=== PATIENT | male | born 1930 | race Caucasian/White ===

== ENCOUNTER 2017-01-02 15:16 | Inpatient (IN) | payer MEDICARE, OTHER ==
--- NOTE | ~2017-01-02 | DS ---
Discharge Summary [facility] [address] [place]. [address] NAME: JESSICA NORRIS : 30 STATUS : DIS IN PAT#: [id number] AGE: 86 ADM/REG DATE : 01/02/17 MR#: [id number] REPORT SERV DATE: 01/13/17 DICTATED BY: BRENNON PETTY DATE: 01/12/17 REPORT STATUS : Draft TRANSCRIBED BY: LUCERO DATE: 01/12/17 ADMISSION DATE: 01/02/2017 DISCHARGE DATE: 01/12/2017 This patient is now ready to be transferred to rehab. DISCHARGE DISPOSITION: To care home facility. DISCHARGE ACTIVITY: Per facility. DISCHARGE DIET: As tolerated. DISCHARGE MEDICATIONS: Proscar 5 mg at bedtime, Ativan 0.5 mg twice daily, Paxil 10 mg every morning, vancomycin 125 p.o. four times daily per Dr. Beverly, simvastatin 40 mg once daily, Flomax 0.8 mg once at bedtime, triamcinolone three times daily after bathing, Bactroban, ramipril 10 mg once daily, aspirin 81 mg once daily, and Benadryl 50 mg with breakfast and lunch and p.r.n. for itching. DISCHARGE FOLLOWUP: With the physicians at care home [facility]. More than 35 minutes spent planning this patient's discharge, reconciling medications, writing prescriptions, discussing hospital care, and followup arranging discharge as well. ANN/LUCERO Brennon Petty M.D. / [id number] CC: Brennon Petty M.D.
--- NOTE | ~2017-01-02 | DS ---
Discharge Summary [facility] [address] [place]. [address] NAME: JESSICA NORRIS : 30 STATUS : DIS IN PAT#: [id number] AGE: 86 ADM/REG DATE : 01/02/17 MR#: [id number] REPORT SERV DATE: 01/13/17 DICTATED BY: BRENNON PETTY DATE: 01/12/17 REPORT STATUS : Draft TRANSCRIBED BY: MODL DATE: 01/12/17 ADMISSION DATE: 01/02/2017 DISCHARGE DATE: 01/12/2017 DISCHARGE DIAGNOSES: 1. Pneumococcal sepsis with pneumococcal bacteremia. 2. Complicated right parapneumonic effusion, status post chest tube drainage and tPA plus DNase. 3. Klebsiella urinary tract infection. 4. Acute kidney injury, resolved. 5. Cerebrovascular disease. 6. Hypertension. 7. Chronic obstructive pulmonary disease. 8. Anemia. 9. Electrolyte abnormalities, now corrected. 10.History of cerebrovascular accident with the right-sided weakness. 11.Benign prostatic hypertrophy. 12.Hyperlipidemia. 13.Depression. 14.Generalized debility in long-term care facility. CONSULTANTS DURING THIS HOSPITALIZATION: Critical Care Medicine and Dr. Elder Beverly of Infectious Disease. BRIEF HISTORY OF PRESENT ILLNESS: The patient is an 86-year-old male transferred from an outlying ER with acute kidney injury, right pneumonia, and hypotension. For detailed history and physical exam, please see note dictated by Dr. Richey on 01/02/2017. HOSPITAL COURSE: After being admitted to the hospital, this patient was in the intensive care unit up to 01/08/2017. I took over this patient's care on 01/08/2017 when he was transitioned out of the intensive care unit. He was still on oxygen. We kept him on aggressive nebulizing treatments, and we were successfully able to wean the oxygen in the last four days. This patient's pneumococcal sepsis had already resolved. We have treated him with 10 days of appropriate broad-spectrum antibiotic therapy. However, this patient developed diarrhea and was positive for C. difficile, so he was immediately started on vancomycin. Infectious Disease consultation was obtained because of complicated issues of managing antibiotics. Dr. Beverly thought that vancomycin would cover the pneumococcal sepsis, so we continued that and Klebsiella UTI was thought to be a contamination. He continues to improve. His bowel movements have reduced. This patient continued to improve and Physical Therapy saw him in followup and we are recommending. ANN/LUCERO Brennon Discharge Summary [facility] [address] [place] [place] [address] NAME: JESSICA NORRIS : 30 STATUS : DIS IN PAT#: [id number] AGE: 86 ADM/REG DATE : 01/02/17 MR#: [id number] REPORT SERV DATE: 01/13/17 DICTATED BY: BRENNON PETTY DATE: 01/12/17 REPORT STATUS : Draft TRANSCRIBED BY: LUCERO DATE: 01/12/17 Paramjit Petty / [id number] CC: Brennon Petty M.D.
--- NOTE | ~2017-01-02 | OP ---
Record Of Operation [facility] [address] [place]. [address] NAME: JESSICA NORRIS : 30 STATUS : ADM IN PAT#: [id number] AGE: 86 ADM/REG DATE : 01/02/17 MR#: [id number] REPORT SERV DATE: 01/04/17 DICTATED BY: ANG RICHEY DATE: 01/04/17 REPORT STATUS : Draft TRANSCRIBED BY: MODL DATE: 01/04/17 DATE OF PROCEDURE: 01/04/2017 PROCEDURE: Right thoracentesis. INDICATION AND PREOPERATIVE DIAGNOSIS: Concern for a parapneumonic right pleural effusion, worsening hypoxic respiratory failure. POSTOPERATIVE DIAGNOSIS: Concern for a parapneumonic right pleural effusion, worsening hypoxic respiratory failure. PROCEDURE NOTE: The patient was in the supine position, leaning upright. Using ultrasound guidance, we were able to find a large loculated proteinaceous effusion on the right side. We conducted a thoracentesis. We marked the site, sterilized this area, and draped in standard fashion. Using a standard thoracentesis kit, we were able to insert the thoracentesis catheter after giving lidocaine into the site and have returned of yellow proteinaceous exudative effusion. We were able to remove around 800 mL of fluid. We were having difficulty breaking down protein upon suctioning out the fluid and that I had to manipulate the tube. Postprocedure x-ray shows mild improvement of the right thoracic space with worsening pneumonia on the left. PLAN: Follow up cultures and cytology of the right pleural effusion, keep the patient in the intensive care unit, give 1 mg of Bumex for diuresis, and spoke to power of assistant county attorney about the current status. With patient's current status, effusion is not completely evacuated with this thoracentesis and recommend a right chest tube to instill tPA and DNA into the right pleural cavity as he is most likely too frail to undergo a VATS decortication. Healthcare [id number], Mrs. Novak consented to having a chest tube inserted and we will therefore go forward with right chest tube insertion. HFQ/LUCERO Ang Richey MD / [id number] CC: Laurent Hurtado MD
--- NOTE | ~2017-01-02 | HP ---
History And Physical [facility] [address] [place]. [address] NAME: JESSICA MURO : 30 STATUS : ADM IN [facility]#: [id number] AGE: 86 ADM/REG DATE : 01/02/17 MR#: [id number] REPORT SERV DATE: 01/02/17 DICTATED BY: ANG RICHEY DATE: 01/02/17 REPORT STATUS : Draft TRANSCRIBED BY: MODTaty DATE: 01/02/17 DATE OF ADMISSION: 01/02/2017 CHIEF COMPLAINT: Aches all over. HISTORY OF PRESENT ILLNESS: Mr. Muro is an 86-year-old gentleman, who was transferred from an outside ER and was found to have septic shock, a right pneumonia with pleural effusion, and acute kidney injury. The patient is deaf and is difficult to get a history from. He does note of aches and pains and mention that he has a stroke in the past in his legs. Otherwise, I was not able to obtain further history. The patient denies having a cough or chest pain. It seems like most of his pain was pain all over. PAST MEDICAL HISTORY: Indwelling Nettles catheter; benign prostatic hypertrophy; hypertension; according to the patient, a stroke in his legs. HOME MEDICATIONS: Per record, Paxil, Altace, Flomax, Zocor, Proscar, Ativan, Benadryl. ALLERGIES: NO KNOWN DRUG ALLERGIES. FAMILY HISTORY: Could not obtain. SOCIAL HISTORY: The patient notes that he has two kids. Per nursing record, the patient lives in a skilled nursing and someone takes care of him, who is his healthcare power-of- tax associate attorney and not his kids, however, I do not see any documentation. The patient has a history of tobacco. REVIEW OF SYSTEMS: Unable to obtain due to tachypnea and hard of hearing. PHYSICAL EXAMINATION: VITAL SIGNS: Currently afebrile, heart rate 111, blood pressure 87/53, oxygen saturation 98%, respiratory rate 18. This is all done on room air. GENERAL: The patient is alert, tachypneic, hard of hearing. HEENT: No JVD noted. No cervical lymphadenopathy. LUNGS: Breath sounds decreased bilaterally, but no crackles or wheezing. CARDIAC: Tachycardic and regular, no murmurs. ABDOMEN: Abdomen feels nondistended, however, I can actually palpate stool throughout. The patient denies having any pain. He had no guarding or rebound. EXTREMITIES: Extremity is lukewarm, peripheral pulses noted but are not brisk. No cyanosis noted. IMAGING: Per the outside imaging, the patient has a right lower lobe consolidation with associated pleural effusion. ASSESSMENT AND PLAN: Mr. Muro is an 86-year-old gentleman with a past medical history noted above, who presents with underlying septic shock, acute kidney injury, probable chronic History And Physical [address] [address] NAME: JESSICA MURO : 30 STATUS : ADM IN [facility]#: [id number] AGE: 86 ADM/REG DATE : 01/02/17 MR#: [id number] REPORT SERV DATE: 01/02/17 DICTATED BY: ANG RICHEY DATE: 01/02/17 REPORT STATUS : Draft TRANSCRIBED BY: LUCERO DATE: 01/02/17 urinary tract infection, right-sided pneumonia with pleural effusion, chronic deafness, and constipation. 1. Septic shock: Follow up cultures from the outside hospital, continue vancomycin, but switched the Levaquin to Rocephin. IV fluids. PICC line. Check cortisol and TSH. 2. Acute kidney injury: Repeat BMP now, start IV fluids. 3. Urinary tract infection: Most likely chronic. We will follow up culture from the outside hospital. 4. Right-sided pneumonia with pleural effusion: We will obtain chest x-ray. If this is a significantly large effusion and the patient fails to improve with antibiotic therapy, may consider a thoracentesis. Conducting a thoracentesis right now with his agitation and difficulty with hearing may be somewhat discomforting for the patient. 5. Concern for constipation: We will hydrate adequately. We will start a bowel regimen. 6. The patient is to be started on a diet. 7. Code status: Currently unclear. Nursing staff is getting in touch with the healthcare [id number]. Critical care time: 45 minutes. NAOMIE/LUCERO Ang Richey MD / [id number] CC: Laurent Hurtado MD
--- NOTE | ~2017-01-02 | IDS ---
Interim Discharge Summary [facility] [address] [place]. [address] NAME: JESSICA NORRIS : 30 STATUS : ADM IN [facility]#: [id number] AGE: 86 ADM/REG DATE : 01/02/17 MR#: [id number] REPORT SERV DATE: 01/08/17 DICTATED BY: BELA CAMARENA IV DATE: 01/08/17 REPORT STATUS : Draft TRANSCRIBED BY: LUCERO DATE: 01/08/17 ADMISSION DATE: 01/02/2017 DISCHARGE DATE: 01/08/2017 ADMITTING DIAGNOSES: 1. Pneumococcal sepsis with bacteremia and pneumonia. 2. Complicated right parapneumonic effusion, status post chest tube drainage and tPA, DNase. 3. Klebsiella urinary tract infection. 4. Acute kidney injury, resolved with fluid resuscitation. 5. Cerebrovascular disease. 6. Hypertension. 7. Clinical chronic obstructive pulmonary disease. 8. Anemia. 9. Electrolyte abnormalities being corrected. PROCEDURES: The patient underwent right thoracentesis, then right chest tube placement for complicated parapneumonic effusion. He received three doses of tPA and DNase. CONSULTANTS: None. CURRENT MEDICATIONS: Aspirin 81 mg daily, Ativan 0.5 mg twice a day, Benadryl 25 mg at bedtime, Brovana unit dose twice a day, Pulmicort 1 mg twice a day, Colace 100 mg twice a day, Dulcolax 10 mg daily, DuoNeb q.4 hours while awake and q.4 hours as needed, Flomax 0.8 mg daily, Florastor 1 twice a day, folic acid 1 mg daily, heparin 5000 units q.8 hours, Maxipime 1 g q.6 hours, MiraLAX daily, Paxil 10 mg daily, Proscar 5 mg daily, Protonix 40 mg daily, Senokot 1 twice a day, multivitamin daily, and Zocor 40 mg daily. HOSPITAL COURSE: The patient was admitted in transfer from [facility] for acute kidney injury and sepsis. The patient never required vasopressor agents and responded to fluid resuscitation. His acute kidney injury resolved as well. Cultures from [facility] demonstrated pneumococcus in 2 out of 2 blood cultures and Klebsiella in the urine. The patient was initially placed on vancomycin and ceftriaxone with ceftriaxone changed to Zosyn because of the pleural fluid involvement prior to known organisms. The antibiotics were then changed to cefepime with a decrease in the procalcitonin level and white blood cell count and clinical improvement. The patient had a thoracentesis performed on the demonstrating high LDH and low glucose, for which a chest tube was placed with improved drainage. Because of the appearance of loculation, the patient underwent tPA and DNase on three treatments. At that time, there was no significant fluid drainage and chest CT scan failed to demonstrate any significant collection. Chest tube was pulled on the . The patient is incredibly hard of hearing. Initially, he had poor oral intake which has improved. After discussions with the care provider, the patient was made a do-not- resuscitate on the . He is currently on 1 L and was felt to be stable for transfer to the floor which was performed on the . We will ask the Hospital Service to assume primary responsibility. Because of the patient has low iron and TIBC with anemia, we will start iron orally. Interim Discharge Summary [address] [address] NAME: JESSICA NORRIS : 30 STATUS : ADM IN [facility]#: [id number] AGE: 86 ADM/REG DATE : 01/02/17 MR#: [id number] REPORT SERV DATE: 01/08/17 DICTATED BY: BELA CAMARENA IV DATE: 01/08/17 REPORT STATUS : Draft TRANSCRIBED BY: LUCERO DATE: 01/08/17 MARGO/LUCERO Bela Camarena IV, M.D. / [id number] CC: Laurent Hurtado MD
--- NOTE | ~2017-01-02 | CN ---
Consultation Report [facility] [address] [place]. [address] NAME: JESSICA NORRIS : 30 STATUS : ADM IN [facility]#: [id number] AGE: 86 ADM/REG DATE : 01/02/17 MR#: [id number] REPORT SERV DATE: 01/09/17 DICTATED BY: JUVENTINO HARDIN DATE: 01/09/17 REPORT STATUS : Draft TRANSCRIBED BY: MODL DATE: 01/09/17 INFECTIOUS DISEASE CONSULT DATE OF CONSULTATION: REASON FOR REFERRAL: Evaluation and treatment of multiple infections. HISTORY OF PRESENT ILLNESS: The patient is an 86-year-old male. He has a history of hypertension. He has had a cerebrovascular accident in the past. He has had very poor hearing and benign prostatic hypertrophy. He has a chronic indwelling Nettles. He has been in a long-term care facility, but went to [facility] after developing weakness, severe bilateral diffuse myalgias, complained of no cough or shortness of breath, but had an abnormal chest x-ray with a right-sided infiltrate and effusion. On initial presentation, he also had greater than 182 white blood cells, all was cultured. He was started on antibiotics and then transferred here, at which point, he was placed on cefepime. His urine cultures grew Klebsiella pneumoniae, greater than 100,000 colonies, very sensitive. His blood cultures there grew a Strep pneumo in 2 of 2. He was switched to cefepime to cover both. Here, he had a thoracentesis because of the effusion. He did have a high LDH of 1350 and a glucose of less than 1, so a chest tube was placed. Adequate drainage was demonstrated and that was removed on 01/07/2017. He improved, became more alert, difficult to communicate because of the hearing. His white blood cell count and procalcitonin both improved. He was transferred to the floor yesterday. Shortly after arrival, he had a large loose watery stool, three more followed, so stool was submitted for C difficile and found to be positive. He is not complaining of abdominal pain or cramping, and his white blood cell count has come down to normal. PAST MEDICAL HISTORY: Otherwise, unremarkable. MEDICATIONS: As described above. ALLERGIES: NO KNOWN ANTIMICROBIAL ALLERGIES. SOCIAL HISTORY: He previously was in a alf. He does have a history of past smoking, but not recent. No history of alcohol or substance abuse. FAMILY HISTORY: Noncontributory. PHYSICAL EXAMINATION: GENERAL: A chronically ill-appearing elderly male. When questioned or shouted at him, answers appropriately, but most of the time just repeats, "I feel fine." VITAL SIGNS: His temperature has been normal. Since transfer out of the intensive care unit, it is 99.2 today with a pulse of 100, respirations 20, blood pressure 118/58. Weight is 76 kg. HEENT: Sclerae are clear. No acute-appearing oral lesions seen. Consultation Report [facility] [id number] [facility] [place]. [address] NAME: JESSICA NORRIS : 30 STATUS : ADM IN [facility]#: [id number] AGE: 86 ADM/REG DATE : 01/02/17 MR#: [id number] REPORT SERV DATE: 01/09/17 DICTATED BY: JUVENTINO HARDIN DATE: 01/09/17 REPORT STATUS : Draft TRANSCRIBED BY: LUCERO DATE: 01/09/17 LUNGS: Had decreased breath sounds bilaterally in the bases. HEART: Regular rate and rhythm. ABDOMEN: Soft, nontender. Positive bowel sounds. EXTREMITIES: Without clubbing, cyanosis. LABORATORY DATA: White blood cell count when he presented here was 24,000 with 6% bands, later 13% bands, it has decreased down to 9.1 today with a hematocrit of 21.1; platelets 344; normal differential. BUN and creatinine are 18 and 1. Creatinine was 2.28 when he came in. Procalcitonin was originally 5.47 and 1.11 on 01/08/2017. IMPRESSION: 1. Pneumococcal pneumonia with associated sepsis, resolving with appropriate antibiotics. 2. Klebsiella urinary tract infection. He has received adequate treatment for that. 3. Clostridium difficile colitis, though not associated with pain or elevated white count, so would appear to be early mild infection or perhaps even colonization. RECOMMENDATIONS: 1. Change his systemic antibiotics to IV vancomycin to complete treatment of the pneumococcus hopefully without stimulating the C difficile. 2. I do not think he needs any further treatment for the urinary tract infection and so cefepime does not need to be continued for that. 3. Oral vancomycin has been ordered. I agree. I would give him three to four weeks of that and then a taper. 4. Finally, I will follow the patient with you. I appreciate very much your consulting on this patient. ALEJANDRA Juventino Hardin M.D. / [id number] CC: Brennon Petty M.D.
--- NOTE | ~2017-01-02 | OP ---
Record Of Operation [facility] [address] [place]. [address] NAME: JESSICA NORRIS : 30 STATUS : ADM IN [facility]#: [id number] AGE: 86 ADM/REG DATE : 01/02/17 MR#: [id number] REPORT SERV DATE: 01/04/17 DICTATED BY: ANG RICHEY DATE: 01/04/17 REPORT STATUS : Draft TRANSCRIBED BY: MODL DATE: 01/04/17 DATE OF PROCEDURE: 01/04/2017 PROCEDURE: Chest tube insertion. INDICATION FOR CHEST TUBE INSERTION: The patient has continued large pleural effusion after thoracentesis which was noted be loculated, chest tube to be inserted for tPA and DNase and also therapeutic. PREOPERATIVE DIAGNOSIS: A parapneumonic effusion on the right. POSTOPERATIVE DIAGNOSIS: A parapneumonic effusion on the right. PROCEDURE NOTE: The patient was placed in proper position, sterilized the area and draped in standard fashion, using a Thal-Quick surgical chest tube insertion technique, we placed a 28 Haitian chest tube into the right thoracic cavity, the removal of same similar fluid from the thoracentesis moments prior was noted, this was inserted 15 cm into the chest cavity and sutured in standard chest tube insertion. We dilated up to 30-Haitian dilators. This was secured, and chest x-ray was ordered. OUTCOME: Successful right chest tube insertion of 28-Haitian caliber. HFQ/LUCERO Ang Richey MD / [id number] CC: Laurent Hurtado MD
[~2017-01-02 15:16] MED LIST: ACETSUP650 PR; ALTACE10 MG PO; ASA5GR PO; AT25 PO; DSS PO; FLOMAX4 PO; LIPITOR80 MG PO; MOMETASONE0.11 EX; T PO
[2017-01-02] MEDS ORDERED: TRIAMCINOLONE C80 GM TOP (16:59)
[2017-01-02] MEDS ORDERED: IMOD PO (16:59)
[2017-01-02] MEDS ORDERED: ASAB PO (16:59)
[2017-01-02] MEDS ORDERED: FLOMAX4 PO (17:00)
[2017-01-02] MEDS ORDERED: ZOCOR40 PO (17:00)
[2017-01-02] MEDS ORDERED: ALTACE10 MG PO (17:00)
[2017-01-02] MEDS ORDERED: ATV.5 PO (17:00)
[2017-01-02] MEDS ORDERED: PROSCAR5 PO (17:00)
[2017-01-02] MEDS ORDERED: BACTROCR TOP (17:00)
[2017-01-02] MEDS ORDERED: PAX10 PO (17:00)
[2017-01-02] MEDS ORDERED: BEN25 PO ×2 (17:01)
[2017-01-02 18:14] LABS: HEMATOCRIT 25.2 % (40.0-51.0); HEMOGLOBIN 8.7 g/dL (13.6-17.8); MEAN CORPUS HGB CONC 34.5 g/dL (32.0-36.0); MEAN CORPUSCULAR VOLUME 92.6 fL (80-100); MEAN PLATELET VOLUME 8.8 fL (9.2-13.0); PLATELET COUNT 328 10/3/uL (150-400); RBC DISTRIBUTION WIDTH 18.2 % (12.0-16.0); RED CELL COUNT 2.72 10/6/uL (4.7-6.1); WHITE BLOOD CELLS 24.6 10/3/uL (4.5-10.5)
[2017-01-02 18:15] LABS: MANUAL DIFF YES %
[2017-01-02 18:18] LABS: BUN (BLOOD UREA NITROGEN) 41 MG/DL (6-23); CALCIUM, SERUM 7.4 MG/DL (8.5-10.4); CHLORIDE, SERUM 102 MMOL/L (96-112); CO2 (CARBON DIOXIDE) 16 MMOL/L (24-34); CREATININE 2.28 MG/DL (0.70-1.30); FREE T4 1.33 NG/DL (0.76-1.46); GFR AFRICAN AMERICAN 29 ML/MIN (>=60); GFR NON AFRICAN AMERICAN 25 ML/MIN (>=60); GLUCOSE, SERUM 109 MG/DL (60-99); POTASSIUM, SERUM 3.9 MMOL/L (3.5-5.3); SODIUM, SERUM 135 MMOL/L (135-148)
[2017-01-02 18:36] LABS: ANISOCYTOSIS 1+ (5-10/OIF) (0-5/OIF); BAND NEUTROPHILS 6 %; LYMPHOCYTES 1 %; LYMPHOCYTES ABSOLUTE (CALC) 0.25 10/3/uL (0.67-4.30); MONOCYTES 9 %; MONOCYTES ABSOLUTE (CALC) 2.21 10/3/uL (0.21-1.20); NEUTROPHILS ABSOLUTE (CALC) 22.14 10/3/uL (2.02-8.40); SEGMENTED NEUTROPHIL (0) 84 %; TOTAL NUCLEATED CELLS 100
[2017-01-02 18:37] LABS: BURR CELLS 1+ (3-10/OIF) (0-2/OIF); PLATELET ESTIMATE ADQ (ADEQUATE)
[2017-01-02 18:38] LABS: GIANT PLATELET RARE
[2017-01-03 03:50] LABS: HEMATOCRIT 24.7 % (40.0-51.0); HEMOGLOBIN 8.4 g/dL (13.6-17.8); MEAN CORPUSCULAR HEMOGLOB 30.7 pg (26.0-34.0); MEAN CORPUSCULAR VOLUME 90.1 fL (80-100); MEAN PLATELET VOLUME 8.5 fL (9.2-13.0); PLATELET COUNT 348 10/3/uL (150-400); RBC DISTRIBUTION WIDTH 16.8 % (12.0-16.0); RED CELL COUNT 2.74 10/6/uL (4.7-6.1); WHITE BLOOD CELLS 19.5 10/3/uL (4.5-10.5)
[2017-01-03 03:51] LABS: MANUAL DIFF YES %
[2017-01-03 03:58] LABS: BUN (BLOOD UREA NITROGEN) 40 MG/DL (6-23); CALCIUM, SERUM 7.6 MG/DL (8.5-10.4); CHLORIDE, SERUM 104 MMOL/L (96-112); CREATININE 1.98 MG/DL (0.70-1.30); GFR AFRICAN AMERICAN 34 ML/MIN (>=60); GFR NON AFRICAN AMERICAN 30 ML/MIN (>=60); GLUCOSE, SERUM 113 MG/DL (60-99); PHOSPHORUS, SERUM 2.5 MG/DL (2.5-4.5); POTASSIUM, SERUM 4.3 MMOL/L (3.5-5.3); SODIUM, SERUM 136 MMOL/L (135-148)
[2017-01-03 03:59] LABS: CO2 (CARBON DIOXIDE) 20 MMOL/L (24-34)
[2017-01-03 04:52] LABS: BAND NEUTROPHILS 10 %; LYMPHOCYTES 1 %; MONOCYTES 8 %; MONOCYTES ABSOLUTE (CALC) 1.56 10/3/uL (0.21-1.20); NEUTROPHILS ABSOLUTE (CALC) 17.75 10/3/uL (2.02-8.40); PLATELET ESTIMATE ADQ (ADEQUATE); RBC MORPHOLOGY ABN (NORMAL); ROULEAUX FORMATION 1+; SEGMENTED NEUTROPHIL (0) 81 %; TOTAL NUCLEATED CELLS 100
[2017-01-03 22:58] LABS: BE (BASE EXCESS) -6.5 MEQ/L (0 +/- 2.5); CARBOXYHEMOGLOBIN 0.5 % (0-3); DEVICE NC; HCO3 (ACTUAL BICARBONATE) 18.1 MEQ/L (23-27); HEMOBLOGIN CONTENT 9.2 G/DL (14-18); INSTRUMENT SERIAL # 8083; METHEMOGLOBIN 0.3 % (0-3); PCO2 (CO2 TENSION) 33 MMHG (35-45); PO2 (O2 TENSION) 68 MMHG (79-93); SAMPLE Arterial; pH 7.36 (7.37-7.43)
[2017-01-04 04:13] LABS: HEMATOCRIT 23.6 % (40.0-51.0); HEMOGLOBIN 7.9 g/dL (13.6-17.8); MEAN CORPUS HGB CONC 33.5 g/dL (32.0-36.0); MEAN CORPUSCULAR HEMOGLOB 30.2 pg (26.0-34.0); MEAN CORPUSCULAR VOLUME 90.1 fL (80-100); MEAN PLATELET VOLUME 8.2 fL (9.2-13.0); PLATELET COUNT 324 10/3/uL (150-400); RBC DISTRIBUTION WIDTH 17.6 % (12.0-16.0); RED CELL COUNT 2.62 10/6/uL (4.7-6.1); WHITE BLOOD CELLS 19.4 10/3/uL (4.5-10.5)
[2017-01-04 04:21] LABS: MANUAL DIFF YES %
[2017-01-04 04:24] LABS: CALCIUM, SERUM 7.4 MG/DL (8.5-10.4); CHLORIDE, SERUM 103 MMOL/L (96-112); CO2 (CARBON DIOXIDE) 23 MMOL/L (24-34); GFR AFRICAN AMERICAN 57 ML/MIN (>=60); GFR NON AFRICAN AMERICAN 49 ML/MIN (>=60); GLUCOSE, SERUM 111 MG/DL (60-99); POTASSIUM, SERUM 3.9 MMOL/L (3.5-5.3); SODIUM, SERUM 134 MMOL/L (135-148)
[2017-01-04 04:28] LABS: BUN (BLOOD UREA NITROGEN) 31 MG/DL (6-23); CREATININE 1.31 MG/DL (0.70-1.30)
[2017-01-04 05:26] LABS: LYMPHOCYTES 4 %; LYMPHOCYTES ABSOLUTE (CALC) 0.78 10/3/uL (0.67-4.30); MONOCYTES 3 %; MONOCYTES ABSOLUTE (CALC) 0.58 10/3/uL (0.21-1.20); NEUTROPHILS ABSOLUTE (CALC) 18.04 10/3/uL (2.02-8.40); TOTAL NUCLEATED CELLS 100
[2017-01-04 05:27] LABS: ANISOCYTOSIS 1+ (5-10/OIF) (0-5/OIF); BAND NEUTROPHILS 13 %; BURR CELLS 1+ (3-10/OIF) (0-2/OIF); PLATELET ESTIMATE ADQ (ADEQUATE); SEGMENTED NEUTROPHIL (0) 80 %
[2017-01-04 15:42] LABS: LDH BODY FLUID (NOT ORD) 1350 U/L; PROTEIN BODY FLUID 3.6 G/DL
[2017-01-04 16:00] LABS: GLUCOSE BODY FL (NOT ORD) < 1 MG/DL
[2017-01-04 16:27] LABS: BD FL SOURCE (NOT ORD) THORACENTESIS
[2017-01-05 04:28] LABS: BASOPHILS 0.1 %; BASOPHILS ABSOLUTE 0.01 10/3/uL (0.0-0.16); EOSINOPHILS 0.1 %; EOSINOPHILS ABSOLUTE 0.01 10/3/uL (0.0-0.53); HEMATOCRIT 24.2 % (40.0-51.0); IMMATURE GRANULOCYTES 0.9 %; IMMATURE GRANULOCYTES ABSOLUTE 0.17 10/3/uL (0.0-0.11); LYMPHOCYTES 2.6 %; LYMPHOCYTES ABSOLUTE 0.47 10/3/uL (0.67-4.30); MEAN CORPUS HGB CONC 33.1 g/dL (32.0-36.0); MEAN CORPUSCULAR HEMOGLOB 29.1 pg (26.0-34.0); MEAN PLATELET VOLUME 8.3 fL (9.2-13.0); MONOCYTES 3.8 %; MONOCYTES ABSOLUTE 0.69 10/3/uL (0.21-1.20); NEUTROPHILS 92.5 %; NEUTROPHILS ABSOLUTE 16.96 10/3/uL (2.02-8.40); PLATELET COUNT 339 10/3/uL (150-400); RBC DISTRIBUTION WIDTH 15.9 % (12.0-16.0); RED CELL COUNT 2.75 10/6/uL (4.7-6.1); WHITE BLOOD CELLS 18.3 10/3/uL (4.5-10.5)
[2017-01-05 04:41] LABS: CALCIUM, SERUM 7.5 MG/DL (8.5-10.4); CHLORIDE, SERUM 104 MMOL/L (96-112); CO2 (CARBON DIOXIDE) 23 MMOL/L (24-34); CREATININE 1.13 MG/DL (0.70-1.30); GFR AFRICAN AMERICAN 68 ML/MIN (>=60); GFR NON AFRICAN AMERICAN 59 ML/MIN (>=60); GLUCOSE, SERUM 100 MG/DL (60-99); MANUAL DIFF NO %; PHOSPHORUS, SERUM 1.9 MG/DL (2.5-4.5); POTASSIUM, SERUM 3.9 MMOL/L (3.5-5.3); SODIUM, SERUM 136 MMOL/L (135-148)
[2017-01-05 04:46] LABS: BUN (BLOOD UREA NITROGEN) 25 MG/DL (6-23)
[2017-01-05 11:21] LABS: PROCALCITONIN 5.47 ng/mL (<0.5)
[2017-01-06 05:03] LABS: BASOPHILS 0.1 %; BASOPHILS ABSOLUTE 0.02 10/3/uL (0.0-0.16); EOSINOPHILS 0.5 %; EOSINOPHILS ABSOLUTE 0.07 10/3/uL (0.0-0.53); HEMATOCRIT 24.9 % (40.0-51.0); HEMOGLOBIN 8.1 g/dL (13.6-17.8); IMMATURE GRANULOCYTES 2.8 %; IMMATURE GRANULOCYTES ABSOLUTE 0.42 10/3/uL (0.0-0.11); LYMPHOCYTES 4.2 %; LYMPHOCYTES ABSOLUTE 0.63 10/3/uL (0.67-4.30); MEAN CORPUS HGB CONC 32.5 g/dL (32.0-36.0); MEAN CORPUSCULAR HEMOGLOB 27.6 pg (26.0-34.0); MEAN PLATELET VOLUME 8.2 fL (9.2-13.0); MONOCYTES 5.7 %; MONOCYTES ABSOLUTE 0.86 10/3/uL (0.21-1.20); NEUTROPHILS 86.7 %; NEUTROPHILS ABSOLUTE 13.12 10/3/uL (2.02-8.40); PLATELET COUNT 336 10/3/uL (150-400); RBC DISTRIBUTION WIDTH 15.8 % (12.0-16.0); RED CELL COUNT 2.94 10/6/uL (4.7-6.1); WHITE BLOOD CELLS 15.1 10/3/uL (4.5-10.5)
[2017-01-06 05:13] LABS: MANUAL DIFF NO %; MEAN CORPUSCULAR VOLUME 84.7 fL (80-100)
[2017-01-06 05:19] LABS: BUN (BLOOD UREA NITROGEN) 23 MG/DL (6-23); CALCIUM, SERUM 7.7 MG/DL (8.5-10.4); CHLORIDE, SERUM 103 MMOL/L (96-112); CO2 (CARBON DIOXIDE) 25 MMOL/L (24-34); CREATININE 1.16 MG/DL (0.70-1.30); GFR AFRICAN AMERICAN 66 ML/MIN (>=60); GFR NON AFRICAN AMERICAN 57 ML/MIN (>=60); GLUCOSE, SERUM 92 MG/DL (60-99); POTASSIUM, SERUM 3.9 MMOL/L (3.5-5.3); SGOT(AST) 74 U/L (5-40); SGPT(ALT) 53 U/L (5-65); SODIUM, SERUM 139 MMOL/L (135-148); TOTAL BILIRUBIN 0.5 MG/DL (0-1.2); TOTAL PROTEIN 5.2 G/DL (6.0-8.5)
[2017-01-06 05:27] LABS: A/G RATIO 0.4 (0.7-1.9); ALBUMIN 1.5 G/DL (3.5-5.0); ALKALINE PHOSPHATASE 121 U/L (45-117); GLOBULIN 3.7 G/DL (2.5-4.1)
[2017-01-07 05:23] LABS: HEMATOCRIT 24.8 % (40.0-51.0); HEMOGLOBIN 8.1 g/dL (13.6-17.8); MEAN CORPUS HGB CONC 32.7 g/dL (32.0-36.0); MEAN CORPUSCULAR HEMOGLOB 27.6 pg (26.0-34.0); MEAN CORPUSCULAR VOLUME 84.6 fL (80-100); MEAN PLATELET VOLUME 8.4 fL (9.2-13.0); PLATELET COUNT 351 10/3/uL (150-400); RBC DISTRIBUTION WIDTH 15.8 % (12.0-16.0); RED CELL COUNT 2.93 10/6/uL (4.7-6.1); WHITE BLOOD CELLS 14.3 10/3/uL (4.5-10.5)
[2017-01-07 05:24] LABS: MANUAL DIFF YES %
[2017-01-07 05:34] LABS: ALBUMIN 1.5 G/DL (3.5-5.0); BUN (BLOOD UREA NITROGEN) 20 MG/DL (6-23); CALCIUM, SERUM 7.8 MG/DL (8.5-10.4); CHLORIDE, SERUM 102 MMOL/L (96-112); CO2 (CARBON DIOXIDE) 25 MMOL/L (24-34); CREATININE 1.09 MG/DL (0.70-1.30); GFR AFRICAN AMERICAN 71 ML/MIN (>=60); GFR NON AFRICAN AMERICAN 61 ML/MIN (>=60); GLUCOSE, SERUM 77 MG/DL (60-99); PHOSPHORUS, SERUM 3.2 MG/DL (2.5-4.5); POTASSIUM, SERUM 3.5 MMOL/L (3.5-5.3); SODIUM, SERUM 138 MMOL/L (135-148)
[2017-01-07 07:42] LABS: BAND NEUTROPHILS 3 %; LYMPHOCYTES 8 %; LYMPHOCYTES ABSOLUTE (CALC) 1.14 10/3/uL (0.67-4.30); MONOCYTES 9 %; MONOCYTES ABSOLUTE (CALC) 1.29 10/3/uL (0.21-1.20); NEUTROPHILS ABSOLUTE (CALC) 11.87 10/3/uL (2.02-8.40); PLATELET ESTIMATE ADQ (ADEQUATE); RBC MORPHOLOGY NORM (NORMAL); SEGMENTED NEUTROPHIL (0) 80 %; TOTAL NUCLEATED CELLS 100
[2017-01-08 06:04] LABS: HEMATOCRIT 23.4 % (40.0-51.0); HEMOGLOBIN 7.7 g/dL (13.6-17.8); MEAN CORPUS HGB CONC 32.9 g/dL (32.0-36.0); MEAN CORPUSCULAR HEMOGLOB 27.6 pg (26.0-34.0); MEAN CORPUSCULAR VOLUME 83.9 fL (80-100); MEAN PLATELET VOLUME 8.4 fL (9.2-13.0); PLATELET COUNT 326 10/3/uL (150-400); RBC DISTRIBUTION WIDTH 15.8 % (12.0-16.0); RED CELL COUNT 2.79 10/6/uL (4.7-6.1); WHITE BLOOD CELLS 11.6 10/3/uL (4.5-10.5)
[2017-01-08 06:11] LABS: MANUAL DIFF YES %
[2017-01-08 06:23] LABS: BUN (BLOOD UREA NITROGEN) 18 MG/DL (6-23); CHLORIDE, SERUM 106 MMOL/L (96-112); CO2 (CARBON DIOXIDE) 26 MMOL/L (24-34); CREATININE 1.05 MG/DL (0.70-1.30); GFR AFRICAN AMERICAN 74 ML/MIN (>=60); GFR NON AFRICAN AMERICAN 64 ML/MIN (>=60); IRON BINDING CAPACITY 105 MCG/DL (250-450); IRON, SERUM 22 MCG/DL (35-150); PHOSPHORUS, SERUM 2.5 MG/DL (2.5-4.5); POTASSIUM, SERUM 3.9 MMOL/L (3.5-5.3); SODIUM, SERUM 140 MMOL/L (135-148)
[2017-01-08 06:28] LABS: CALCIUM, SERUM 7.6 MG/DL (8.5-10.4)
[2017-01-08 06:30] LABS: GLUCOSE, SERUM 105 MG/DL (60-99)
[2017-01-08 06:40] LABS: BAND NEUTROPHILS 10 %; EOSINOPHILS 2 %; EOSINOPHILS ABSOLUTE (CALC) 0.23 10/3/uL (0.0-0.53); IMMATURE GRANS ABSOLUTE (CALC) 0.35 10/3/uL (0.0-0.11); LYMPHOCYTES 6 %; METAMYELOCYTES 3 %; MONOCYTES 6 %; NEUTROPHILS ABSOLUTE (CALC) 9.63 10/3/uL (2.02-8.40); PLATELET ESTIMATE ADQ (ADEQUATE); RBC MORPHOLOGY NORM (NORMAL); SEGMENTED NEUTROPHIL (0) 73 %; TOTAL NUCLEATED CELLS 100
[2017-01-08 07:53] LABS: PROCALCITONIN 1.11 ng/mL (<0.5)
[2017-01-09 05:31] LABS: HEMATOCRIT 21.1 % (40.0-51.0); MEAN CORPUS HGB CONC 32.2 g/dL (32.0-36.0); MEAN CORPUSCULAR HEMOGLOB 27.5 pg (26.0-34.0); MEAN CORPUSCULAR VOLUME 85.4 fL (80-100); MEAN PLATELET VOLUME 8.4 fL (9.2-13.0); PLATELET COUNT 344 10/3/uL (150-400); RED CELL COUNT 2.47 10/6/uL (4.7-6.1); WHITE BLOOD CELLS 9.1 10/3/uL (4.5-10.5)
[2017-01-09 05:41] LABS: ALBUMIN 1.3 G/DL (3.5-5.0); BUN (BLOOD UREA NITROGEN) 18 MG/DL (6-23); CALCIUM, SERUM 7.4 MG/DL (8.5-10.4); CHLORIDE, SERUM 106 MMOL/L (96-112); CO2 (CARBON DIOXIDE) 25 MMOL/L (24-34); GFR AFRICAN AMERICAN 79 ML/MIN (>=60); GFR NON AFRICAN AMERICAN 68 ML/MIN (>=60); GLUCOSE, SERUM 98 MG/DL (60-99); PHOSPHORUS, SERUM 2.4 MG/DL (2.5-4.5); POTASSIUM, SERUM 3.8 MMOL/L (3.5-5.3); SODIUM, SERUM 140 MMOL/L (135-148)
[2017-01-09 05:59] LABS: HEMOGLOBIN 6.8 g/dL (13.6-17.8); MANUAL DIFF YES %
[2017-01-09 07:19] LABS: BAND NEUTROPHILS 3 %; EOSINOPHILS 2 %; EOSINOPHILS ABSOLUTE (CALC) 0.18 10/3/uL (0.0-0.53); IMMATURE GRANS ABSOLUTE (CALC) 0.36 10/3/uL (0.0-0.11); LYMPHOCYTES 9 %; LYMPHOCYTES ABSOLUTE (CALC) 0.82 10/3/uL (0.67-4.30); METAMYELOCYTES 3 %; MONOCYTES 2 %; MONOCYTES ABSOLUTE (CALC) 0.18 10/3/uL (0.21-1.20); MYELOCYTES 1 %; NEUTROPHILS ABSOLUTE (CALC) 7.55 10/3/uL (2.02-8.40); SEGMENTED NEUTROPHIL (0) 80 %; TOTAL NUCLEATED CELLS 100
[2017-01-09 07:20] LABS: PLATELET ESTIMATE ADQ (ADEQUATE); RBC MORPHOLOGY NORM (NORMAL)
[2017-01-10 06:42] LABS: ALBUMIN 1.3 G/DL (3.5-5.0); BUN (BLOOD UREA NITROGEN) 18 MG/DL (6-23); CALCIUM, SERUM 7.7 MG/DL (8.5-10.4); CHLORIDE, SERUM 104 MMOL/L (96-112); CO2 (CARBON DIOXIDE) 25 MMOL/L (24-34); CREATININE 0.98 MG/DL (0.70-1.30); GFR AFRICAN AMERICAN 81 ML/MIN (>=60); GFR NON AFRICAN AMERICAN 70 ML/MIN (>=60); GLUCOSE, SERUM 93 MG/DL (60-99); PHOSPHORUS, SERUM 1.8 MG/DL (2.5-4.5); POTASSIUM, SERUM 4.4 MMOL/L (3.5-5.3); SODIUM, SERUM 136 MMOL/L (135-148)
[2017-01-10 11:50] LABS: BASOPHILS 0.3 %; BASOPHILS ABSOLUTE 0.03 10/3/uL (0.0-0.16); EOSINOPHILS 2.9 %; EOSINOPHILS ABSOLUTE 0.29 10/3/uL (0.0-0.53); HEMATOCRIT 21.2 % (40.0-51.0); IMMATURE GRANULOCYTES 4.3 %; IMMATURE GRANULOCYTES ABSOLUTE 0.42 10/3/uL (0.0-0.11); LYMPHOCYTES 9.8 %; LYMPHOCYTES ABSOLUTE 0.97 10/3/uL (0.67-4.30); MEAN CORPUS HGB CONC 32.5 g/dL (32.0-36.0); MEAN CORPUSCULAR HEMOGLOB 28.8 pg (26.0-34.0); MEAN PLATELET VOLUME 8.7 fL (9.2-13.0); MONOCYTES 6.4 %; MONOCYTES ABSOLUTE 0.63 10/3/uL (0.21-1.20); NEUTROPHILS 76.3 %; NEUTROPHILS ABSOLUTE 7.54 10/3/uL (2.02-8.40); PLATELET COUNT 402 10/3/uL (150-400); RBC DISTRIBUTION WIDTH 16.1 % (12.0-16.0); WHITE BLOOD CELLS 9.9 10/3/uL (4.5-10.5)
[2017-01-10 11:51] LABS: HEMOGLOBIN 6.9 g/dL (13.6-17.8); MANUAL DIFF NO %; MEAN CORPUSCULAR VOLUME 88.3 fL (80-100)
[2017-01-11 06:10] LABS: BASOPHILS 0.3 %; BASOPHILS ABSOLUTE 0.03 10/3/uL (0.0-0.16); EOSINOPHILS 3.1 %; EOSINOPHILS ABSOLUTE 0.28 10/3/uL (0.0-0.53); HEMATOCRIT 21.4 % (40.0-51.0); HEMOGLOBIN 7.1 g/dL (13.6-17.8); IMMATURE GRANULOCYTES ABSOLUTE 0.27 10/3/uL (0.0-0.11); LYMPHOCYTES 10.4 %; LYMPHOCYTES ABSOLUTE 0.93 10/3/uL (0.67-4.30); MANUAL DIFF NO %; MEAN CORPUS HGB CONC 33.2 g/dL (32.0-36.0); MEAN CORPUSCULAR HEMOGLOB 29.6 pg (26.0-34.0); MEAN CORPUSCULAR VOLUME 89.2 fL (80-100); MEAN PLATELET VOLUME 8.4 fL (9.2-13.0); MONOCYTES 4.9 %; MONOCYTES ABSOLUTE 0.44 10/3/uL (0.21-1.20); NEUTROPHILS 78.3 %; NEUTROPHILS ABSOLUTE 6.95 10/3/uL (2.02-8.40); PLATELET COUNT 441 10/3/uL (150-400); RBC DISTRIBUTION WIDTH 16.4 % (12.0-16.0); WHITE BLOOD CELLS 8.9 10/3/uL (4.5-10.5)
[2017-01-11 06:27] LABS: ALBUMIN 1.3 G/DL (3.5-5.0); BUN (BLOOD UREA NITROGEN) 15 MG/DL (6-23); CHLORIDE, SERUM 104 MMOL/L (96-112); CO2 (CARBON DIOXIDE) 25 MMOL/L (24-34); CREATININE 0.94 MG/DL (0.70-1.30); GFR AFRICAN AMERICAN 85 ML/MIN (>=60); GFR NON AFRICAN AMERICAN 73 ML/MIN (>=60); GLUCOSE, SERUM 84 MG/DL (60-99); POTASSIUM, SERUM 4.3 MMOL/L (3.5-5.3); SODIUM, SERUM 133 MMOL/L (135-148)
[2017-01-11 06:29] LABS: PHOSPHORUS, SERUM 2.4 MG/DL (2.5-4.5)
[2017-01-12 01:44] LABS: ALBUMIN 1.5 G/DL (3.5-5.0); BUN (BLOOD UREA NITROGEN) 13 MG/DL (6-23); CALCIUM, SERUM 7.8 MG/DL (8.5-10.4); CHLORIDE, SERUM 102 MMOL/L (96-112); CO2 (CARBON DIOXIDE) 25 MMOL/L (24-34); CREATININE 0.96 MG/DL (0.70-1.30); GFR AFRICAN AMERICAN 83 ML/MIN (>=60); GFR NON AFRICAN AMERICAN 71 ML/MIN (>=60); GLUCOSE, SERUM 78 MG/DL (60-99); PHOSPHORUS, SERUM 2.7 MG/DL (2.5-4.5); POTASSIUM, SERUM 4.1 MMOL/L (3.5-5.3); SODIUM, SERUM 135 MMOL/L (135-148)
[2017-01-12 03:18] LABS: BASOPHILS 0.4 %; BASOPHILS ABSOLUTE 0.04 10/3/uL (0.0-0.16); EOSINOPHILS 1.6 %; EOSINOPHILS ABSOLUTE 0.15 10/3/uL (0.0-0.53); HEMATOCRIT 21.5 % (40.0-51.0); HEMOGLOBIN 7.5 g/dL (13.6-17.8); IMMATURE GRANULOCYTES 1.5 %; IMMATURE GRANULOCYTES ABSOLUTE 0.14 10/3/uL (0.0-0.11); LYMPHOCYTES 8.5 %; LYMPHOCYTES ABSOLUTE 0.78 10/3/uL (0.67-4.30); MANUAL DIFF NO %; MEAN CORPUS HGB CONC 34.9 g/dL (32.0-36.0); MEAN CORPUSCULAR HEMOGLOB 32.8 pg (26.0-34.0); MEAN CORPUSCULAR VOLUME 93.9 fL (80-100); MEAN PLATELET VOLUME 8.4 fL (9.2-13.0); MONOCYTES ABSOLUTE 0.64 10/3/uL (0.21-1.20); NEUTROPHILS ABSOLUTE 7.44 10/3/uL (2.02-8.40); PLATELET COUNT 539 10/3/uL (150-400); RBC DISTRIBUTION WIDTH 20.9 % (12.0-16.0); RED CELL COUNT 2.29 10/6/uL (4.7-6.1); WHITE BLOOD CELLS 9.2 10/3/uL (4.5-10.5)
[2017-01-12] MEDS ORDERED: FESO4 PO (12:24)
[2017-01-12] MEDS ORDERED: VANCOCIN HCL125 MG PO (12:25)
== END 2017-01-12 16:31 | disposition home health service (06) | DRG 871 ==
LOC: MIC 15:16 → 4EA 01-08 16:33
PROVIDERS: Internal Medicine; Internal Medicine Critical Care Medicine
PROC: 02HV33Z Insertion of Infusion Device into Superior Vena Cava, Percutaneous Approach (ICD-10-PCS; 2017-01-02)
PROC: 4A02X4A Measurement of Cardiac Electrical Activity, Guidance, External Approach (ICD-10-PCS; 2017-01-02)
PROC: 3E03317 Introduction of Other Thrombolytic into Peripheral Vein, Percutaneous Approach (ICD-10-PCS; 2017-01-02)
PROC: 0W9930Z Drainage of Right Pleural Cavity with Drainage Device, Percutaneous Approach (ICD-10-PCS; principal; 2017-01-04)
PROC: 0W993ZZ Drainage of Right Pleural Cavity, Percutaneous Approach (ICD-10-PCS; 2017-01-04)
DX: A40.3 Sepsis due to Streptococcus pneumoniae (principal); J18.9 Pneumonia, unspecified organism; J96.01 Acute respiratory failure with hypoxia; R65.21 Severe sepsis with septic shock; J90 Pleural effusion, not elsewhere classified; N17.9 Acute kidney failure, unspecified; A04.7 Enterocolitis due to Clostridium difficile; N39.0 Urinary tract infection, site not specified; J44.0 Chronic obstructive pulmonary disease with (acute) lower respiratory infection; N40.0 Benign prostatic hyperplasia without lower urinary tract symptoms; I10 Essential (primary) hypertension; Z79.899 Other long term (current) drug therapy; Z87.891 Personal history of nicotine dependence; B96.1 Klebsiella pneumoniae [K. pneumoniae] as the cause of diseases classified elsewhere; H91.90 Unspecified hearing loss, unspecified ear; J44.9 Chronic obstructive pulmonary disease, unspecified
CPT/HCPCS: 36415; 36569; 36600; 71010; 71250; 74000; 80048; 80053; 80069; 80202; 82533; 82805; 82945; 83540; 83550; 83605; 83615; 83735; 84100; 84145; 84157; 84439; 84443; 85025; 86850; 86870; 86880; 86880-59; 86900; 86901; 86902; 86905; 86920; 86922; 87070; 87205; 87449; 87493; 87493-59; 87641; 88112; 88305; 94640; 97162-GP; A9270-GY; C1751; G8978-CM-GP; G8979-CM-GP; J0692; J1630; J2405; J2543; J2997; J3010; J3370; J3475; P9016